=== PATIENT | female | born 1970 | race Caucasian/White ===

== ENCOUNTER 2017-01-27 10:09 | Emergency (ER) | payer OTHER ==
[2017-01-27] MEDS ORDERED: MORPHINE SULFATE 10 MG/ML SOL IV PRN (10:10)
[2017-01-27] MEDS ORDERED: NITROGLYCERIN 0.4 MG TAB SL PRN (10:10)
[2017-01-27 10:24] LABS: BASOPHILS % (AUTO) 1 % (0-3); EOSINOPHILS % (AUTO) 3 % (0-9); HEMATOCRIT 40 % (35-47); MEAN CORPUSCULAR HGB CONC 33.9 gm/dl (32.0-36.0); MEAN CORPUSCULAR VOLUME 83 fL (81-99); MONOCYTES % (AUTO) 3.6 % (0-12); NEUTROPHILS % (AUTO) 62.9 % (37-80)
[2017-01-27] MEDS ORDERED: MORPHINE SULFATE 10 MG/ML SOL ONE (10:25)
[2017-01-27] MEDS ORDERED: ONDANSETRON HCL 4 MG/2 ML SOL ONE (10:25)
[2017-01-27] MEDS ORDERED: ONDANSETRON HCL 4 MG/2 ML SOL IV ONE (10:25)
[2017-01-27 10:32] VITALS: TEMP 97.9
[2017-01-27] MEDS ORDERED: FENTANYL 100MCG/2ML SOL IV ONE (10:32)
[2017-01-27] MEDS ORDERED: METOPROLOL TARTRATE 50 MG TAB PO ONE (10:34)
[2017-01-27] MEDS ORDERED: FENTANYL 100MCG/2ML SOL ONE (10:34)
[2017-01-27] MEDS ORDERED: METOPROLOL TARTRATE 25 MG TAB ONE (10:34)
[2017-01-27 10:45] LABS: CALCIUM 8.8 mg/dl (8.5-10.1); GLOM FILT RATE 78 mL/min (>60); POTASSIUM 3.1 mMol/L (3.5-5.1); SODIUM 137 mMol/L (136-145)
[2017-01-27] MEDS: SODIUM CHLORIDE 0.9% FLUSH 10 ML SOL IV PRN ×2 (10:46→11:30)
[2017-01-27] MEDS ORDERED: PROMETHAZINE HYDROCHLORIDE 25 MG/ML SOL IV ONE (11:06)
[2017-01-27] MEDS ORDERED: POTASSIUM CHLORIDE 10 MEQ TER PO ONE (11:08)
[2017-01-27] MEDS ORDERED: POTASSIUM CHLORIDE 2 MEQ/ML SOL IV ONE (11:10)
[2017-01-27] MEDS ORDERED: PROMETHAZINE HYDROCHLORIDE 25 MG/ML SOL ONE (11:12)
[2017-01-27] MEDS ORDERED: POTASSIUM CHLORIDE 2 MEQ/ML SOL IV SCH (11:15)
[2017-01-27] MEDS ORDERED: POTASSIUM CHLORIDE 10 MEQ TER ONE (12:36)
[2017-01-27 13:03] VITALS: BP 121/81; PULSE 87; RESP 16; O2SAT 98
== END 2017-01-27 13:15 | disposition home or self-care (01) | DRG 313 ==
LOC: ED 10:09
DX: R07.9 Chest pain, unspecified (principal); E87.6 Hypokalemia; Z86.79 Personal history of other diseases of the circulatory system
CPT/HCPCS: 36415; 71010; 71275; 80048; 82550; 84443; 84484; 85025; 85610; 85730; 93005; 96365; 96366; 96374; 96375; 99284; 99285; J2270; J2405; J2550; J3010; J3480; Q9967